=== PATIENT | female | born 1975 | race Hispanic/Latino ===

== ENCOUNTER 2018-05-21 06:15 | Day surgery (SDC) | payer BC ==
[2018-05-15 13:44] LABS: Absolute Lymphocytes (CBC) 2.1 K/uL (0.7-4.9); Absolute Monocytes 0.3 K/uL (0.1-1.3); Absolute Neutrophil 2.9 K/uL (1.8-8.0); Basophils % 0.6 % (0-1.3); Eosinophils % 2.5 % (0-4.4); Hematocrit 40.8 % (36.0-45.0); Lymphocytes % 38.2 % (15.3-44.8); MCH 30.3 pg (27.0-35.0); MCV 89.8 fL (80-100); MPV 9.4 fL (7.6-11.3); Monocytes % 5.2 % (3.3-12.3); RBC Red Blood Cell Count 4.55 M/uL (3.86-4.86)
[2018-05-15 13:51] LABS: Protime INR 0.92
--- NOTE | 2018-05-15 14:03 | RAD REPORT ---
EXAM DESCRIPTION: Dorota Rondon (2 Views)05/15/2018 1:53 pm CLINICAL HISTORY: preop for foot surgery COMPARISON: None FINDINGS: The lungs appear clear of acute infiltrate. The heart is normal size IMPRESSION: No acute abnormalities displayed
[2018-05-15 14:23] LABS: BUN Blood Urea Nitrogen 12 mg/dL (7-18); Bicarbonate 27 mmol/L (21-32); Glucose Level 90 mg/dL (74-106); Potassium 4.1 mmol/L (3.5-5.1); Sodium Level 143 mmol/L (136-145)
--- NOTE | 2018-05-15 15:32 | EKG ---
Test Date: 2018-05-15 Test Time: 13:18:45 Denture Processor: AYE MEASUREMENT RESULTS: Intervals: Rate: 58 AK: 156 QRSD: 82 QT: 428 QTc: 420 Paron: P: 36 AK: 156 QRS: 28 T: 39 INTERPRETIVE STATEMENTS: Sinus bradycardia Cannot rule out Anterior infarct, age undetermined Abnormal ECG Compared to ECG 07/13/2005 17:56:00 Myocardial infarct finding now present Sinus rhythm no longer present Electronically Signed On 05-15-18 15:32:23 CDT by Geovany Galeana
--- NOTE | 2018-05-20 15:01 | PREOPHP ---
Date of Admission: 05/15/2018 History Of Present Illness: This patient presented to my office with chief complaintof a painful rig ht foot with a painful big toe joint, 4th and 5th toes. The patient's pain is throbbing in nature, m oderate in severity over the past number of months, worse with activity, improved by rest. Past Medical History: Includes GERD. Current Medications: Topamax 100 mg, Prevacid 30 mg, and Celexa 40 mg. Allergies: NKDA. Surgical History: Includes a . Social History: The patient denies smoking and alcohol and IV drug use. Family History: Includes heart disease in her father and diabetes and thyroid disease in her mother. Physical Examination: Vital signs: The patient is 171 pounds, 5 feet 4 inches tall. General appearance: The patient is healthy, well developed, well nourished, well oriented x3. Vascular evaluation: Reveals dorsalis pedis and posterior tibial pulses are 4/4 bilaterally. Capill lexie refill time is 1 second. Temperature gradient is within normal limits. There is no claudication complaint bilaterally. Foot assessment reveals semiflexible cavus foot type bilaterally. Subtalar joint shows increased varus range of motion and a normal forefoot position bilaterally. There is a m edial eminence of the first metatarsal head with range of motion to 80 degrees on the right with a ruiz llux valgus noted. Quads are noted to be 10 degrees bilaterally. Lesser digits include an adductova cedrick deformity of the 4th and 5th toes bilaterally. Muscle testing, knee assessment, and ankle assess ment are all within normal limits with lower extremity muscle strength equal and symmetrical. Skin e valuation reveals no ulcer, tumor, or contracture bilaterally. There is a callus on the 4th PIPJ lat erally on the right foot and irritation to the 1st MPJ right dorsal medial. Neurologic evaluation re veals deep tendon reflexes of the patella and Achilles to be 5/5 bilaterally. Vibratory and sharp du ll sensation within normal limits. X-ray evaluation reveals no fracture, tumor, or DJD seen. Bones are well mineralized. There is an i nferior and posterior calcaneal spur present. There is a lateral deviation of the hallux and sesamoi ds with an increase in the intermetatarsal angle. Hallux abductus angle is 25 degrees. Intermetatar christine angle is 15 degrees. There is an adductovarus 5th toe with an enlarged middle phalanx on the 4th toe of the right foot. Diagnoses: Hallux valgus deformity, right foot, hammertoe deformity, 5th toe right, and osteophyte d eformity, 5th toe, right foot. Recommended treatment due to the failure of conservative care, changing shoe gear, and anti-inflammat ories are for surgical management of the bunion deformity with a 1st metatarsal osteotomy and bunione ctomy on the right foot and arthroplasty on the 5th toe and exostectomy at the lateral PIPJ of the 4t h toe on the right. The patient understands risks, benefits, and alternatives of the above-mentioned procedure, but not limited to the risk of infection, swelling, numbness, stiffness, pain, nonhealing of skin or bone, recurrence of the deformity. Risk of PE and DVT have been explained to the patient as well as the signs and symptoms. Due to lack of response to conservative treatment, the patient d esires surgical management. Postop instructions were given in the written form as well as emergency phone number. Use of cold therapy machine with written instructions was given. The patient's lab wo rk and EKG were performed. The EKG was abnormal and the patient was sent to Dr. Singh for cardiac clearance. This has been received from Dr. Singh and will accompany the patient. Date of surgery May 21, 2018 at [facility]. Medical H and P will be completed by Anesthesia BRENDAN/ANNA Voice ID: [id number]
[2018-05-21] MEDS ORDERED: CEFAZOLIN/SWI 1gm 1 GM/10 ML SYR ONE (06:51)
[2018-05-21] MEDS ORDERED: Ringers Lactate 1,000 ML IV ONE (06:51)
[2018-05-21] MEDS ORDERED: DEXAMETHASONE 4 MG/ML VIAL ONE (07:01)
[2018-05-21] MEDS ORDERED: LIDOCAINE 1% MPF 5 ML VIAL ONE ×2 (07:01→07:25)
[2018-05-21] MEDS ORDERED: BUPIVACAINE 0.5% PF 10 ML VIAL ONE ×2 (07:01→07:26)
[2018-05-21] MEDS ORDERED: MIDAZOLAM HCL 2 MG/2 ML INJ ONE ×2 (07:18→07:25)
[2018-05-21] MEDS ORDERED: PROPOFOL 200 MG/20 ML VIAL IV ONE ×2 (07:25→08:13)
[2018-05-21] MEDS ORDERED: FENTANYL CITR 100 MCG/2 ML ONE (07:25)
[2018-05-21] MEDS ORDERED: ONDANSETRON HCL 40 MG/20 ML VIAL ONE (08:12)
[2018-05-21] MEDS ORDERED: KETOROLAC 30 MG/ML INJ ONE (09:44)
--- NOTE | 2018-05-21 10:40 | RAD REPORT ---
EXAM DESCRIPTION: RAD - Foot Right 3 View - 05/21/2018 10:01 am CLINICAL HISTORY: S/P BUNION , HT 4-5 RIGHT FOOT, foot pain COMPARISON: None. FINDINGS: Bunionectomy changes are present with resection of the medial margin of the first metatars al head. No remnant or residual valgus deformity at the first MTP joint. Resection of the fifth proxi mal phalanx head noted. Postsurgical changes are noted to the lateral margin of the fourth proximal p halanx head. The middle and distal phalanges of the fifth toe are fused as a normal variant. The seco nd- fourth toes and second- fifth metatarsals are otherwise unremarkable. No air, foreign body or suspicious soft tissue finding. IMPRESSION: Postsurgical changes are present to the foot as detailed. No suspicious or unexpected fi nding.
--- NOTE | 2018-05-21 11:36 | OP ---
Date of Procedure: 05/21/2018 Surgeon: Sam Cota DPM Preoperative Diagnoses: 1.Hallux valgus deformity, right foot. 2.Hammertoe deformity, fifth digit, right foot. 3.Bone spur deformity, fourth digit, right foot. Postoperative Diagnoses: 1.Hallux valgus deformity, right foot. 2.Hammertoe deformity, fifth digit, right foot. 3.Bone spur deformity, fourth digit, right foot. Procedure: 1.Bunionectomy with first metatarsal osteotomy at the head with SonicPin fixation, 26 mm, right foot . 2.Arthroplasty, fifth toe procedure, right foot. 3.Exostectomy, fourth toe, lateral aspect proximal interphalangeal joint, right foot. Anesthesia: Via local infiltration. Procedure In Detail: The patient was brought into the operating room, placed on the operating table in supine position. Once adequate IV sedation was obtained, the patient was injected with a total of 15 cc of 0.5% Marcaine plain. The patient was prepped and draped in the usual sterile manner and th e right extremity was elevated and Esmarch bandage was applied to exsanguinate the blood supply. Pne umatic ankle tourniquet was elevated to 250 mmHg. Attention was then directed to the first MPJ, wher e a 5-cm dorsal linear incision was made overlying the first MPJ. The incision was deepened via chema p and blunt dissection. All neurologic structures were avoided. All bleeders were clamped and bovie d. An inverted L incision was made in the capsule of the first MPJ and dissected free from its bony attachments. The medial eminence was brought into view and resected utilizing an oscillating saw. T he first interspace was then approached and a lateral capsulotomy, EHB tenotomy, and adductor tenotom y was performed. The foot was then repositioned within the bed and an osteotomy was created in the h ead of the first metatarsal with the apex distal and the arms proximal in a V-shape fashion at approx imately 60 degrees. The capital fragment was then shifted laterally and impacted medially upon the s haft of the first metatarsal. The remaining medial eminence was removed utilizing an oscillating saw . Utilizing the SonicPin fixation system, a K-wire was drilled in the head of the first metatarsal f rom distal dorsal to proximal plantar. The tap was then engaged and then the tap and pin were remove d and the pin was placed into the hole. The pedal was depressed and the pin merged into the hole to provide compressive fixation. External alignment was seen postop with good compression. The area wa s flushed with copious amounts of sterile saline. Medial capsulorrhaphy was then performed with the toe held in corrected position. The capsular tissue was then reapproximated utilizing 2-0 Vic[address] sut ure. Skin was reapproximated utilizing 4-0 Prolene horizontal mattress suture. With simulated weigh tbearing, the first ray was seen to be in rectus alignment as well as 80 degrees range of motion on t he table. Fifth toe was approached. Two semielliptical converging incisions were made 1 cm in length from dist al lateral to distal medial. Wedge of skin was removed. The extensor digitorum longus tendon was tr ansversely incised and reflected proximally. The medial and collateral ligaments were incised and th e head of the proximal phalanx was brought into view and resected utilizing double-action bone cutter . All rough edges were smoothed. The area was flushed with copious amounts of sterile saline. The fourth toe was then approached and 1 cm incision was made overlying the dorsal lateral aspect of the PIPJ. This was dissected down freeing the capsular tissue from the lateral aspect of the proximal ph alangeal head utilizing an oscillating saw. This was smoothed and the bone enlargement was removed. A rasp was used to facilitate any rough edges that needed to be removed. The area was flushed with copious amounts of sterile saline. Capsular tissue was reapproximated utilizing 3-0 Vicryl suture on the fourth toe. Skin was reapproximated utilizing 4-0 Prolene horizontal mattress suture. The fift h toe tendon was then reapproximated with the toe held in the rotated fashion utilizing the 3-0 Vicry l suture. Skin was reapproximated the toe held in corrected position utilizing 4-0 Prolene horizonta l mattress suture. The areas were dressed with Adaptic, dry sterile gauze, dry sterile Roro, Kerlix , cold therapy pad, and Jose bandage. Pneumatic ankle tourniquet was deflated and capillary return wa s seen to be instantaneous to all digits. The patient will be followed in my office for postoperativ e care. Postop instructions were given in the written form. The patient was sent to recovery in satis factory condition. BRENDAN/ANNA Voice ID: [id number] Report ID: [id number]
--- NOTE | 2018-05-21 11:36 | DS ---
Date of Discharge: 05/21/2018 Date Of Surgery: 05/21/2018. Surgeon: Sam Cota DPM. Preoperative Diagnoses: 1.Hallux valgus deformity, right foot. 2.Hammertoe deformity, fifth digit and bone spur deformity, fourth digit, lateral aspect of proximal interphalangeal, right foot. Procedure: 1.First metatarsal osteotomy with bunionectomy and SonicPin fixation, right foot. 2.Arthroplasty fifth toe, right foot. 3.Exostectomy, fourth toe, right foot. The patient tolerated the procedure and anesthesia well and was sent to recovery in satisfactory cond ition. Will be discharged to home per anesthesia guidelines. The patient may ambulate in a postoper ative shoe. Postop instructions were given in the written form as well as emergency phone number. T he patient will be seen in my office in 1 week for postop care. VENU Voice ID: [id number] Report ID: [id number]
== END 2018-05-21 10:23 | disposition home or self-care (01) ==
LOC: OR 06:15
PROVIDERS: ATTEND Podiatrist
PROC: 0QBQ0ZZ Excision of Right Toe Phalanx, Open Approach (ICD-10-PCS; 2018-05-21)
PROC: 0QSN04Z Reposition Right Metatarsal with Internal Fixation Device, Open Approach (ICD-10-PCS; principal; 2018-05-21 07:30)
PROC: 0SQP0ZZ Repair Right Toe Phalangeal Joint, Open Approach (ICD-10-PCS; 2018-05-21 07:30)
DX: M20.11 Hallux valgus (acquired), right foot (principal); M20.41 Other hammer toe(s) (acquired), right foot; M25.774 Osteophyte, right foot
CPT/HCPCS: 36415; 71046; 80048; 81025; 85025; 85610; 85730; 93005; J0690; J2250; J2405; J3010